=== PATIENT | male | born 1950 | race Caucasian/White ===

== ENCOUNTER → 2017-08-25 | Outpatient (CLI) | payer MEDICARE, OTHER ==
[~2017-08-25] MED LIST: AMBIEN 10MG10 MG PO; AMOXICILLIN 8751 TAB PO; CARDIZEM CD 18180 MG PO; CINNAMON500 MG PO; CORDARONE200 MG/TAB PO; DOXYCYCLINE 10100 MG PO; FORT1000TA PO; GLUCOPHAGE1000 MG PO; GLYNASE PRES-TAB6 MG PO; LANTUS SOLOS100 U/ML SC; LOTENSIN20 MG PO; MUCINEX 60600 MG/TA1 PO; NORVASC 5MG5 MG/TAB PO; OMNICEF 300MG300 MG PO; PRILOSEC 20MG20 MG PO; TYLENOL 325MG325 MG PO; XARELTO10 MG PO; XARELTO15 MG PO; XOPENEX HF0.045 MG/A IH; ZITHROMAX Z PA250 MG PO; ZOCOR 40MG40 MG PO; [UNRECOGNIZED DRUG - OTHER] PO
== END ==
LOC: COL.VAS 09:13
DX: I10 Essential (primary) hypertension (principal)

== ENCOUNTER → 2017-09-02 | Day surgery (SDC) | payer MEDICARE, OTHER ==
[~2017-09-02] VITALS: Ht 180.3 cm; Wt 88.6 kg
== END | disposition home or self-care (01) ==
LOC: COL.CAR 10:01
DX: I10 Essential (primary) hypertension (principal); N28.1 Cyst of kidney, acquired; K44.9 Diaphragmatic hernia without obstruction or gangrene; I70.0 Atherosclerosis of aorta; N40.0 Benign prostatic hyperplasia without lower urinary tract symptoms; Z86.718 Personal history of other venous thrombosis and embolism; I48.91 Unspecified atrial fibrillation; E11.9 Type 2 diabetes mellitus without complications; Z79.4 Long term (current) use of insulin
CPT/HCPCS: Q9967

== ENCOUNTER 2023-05-07 13:05 | Inpatient (IN) | payer MEDICARE, OTHER ==
[~2023-05-07] VITALS: Ht 180.3 cm; Wt 80.3 kg
[~2023-05-07 13:05] MED LIST changes: +ASPIRIN E.C. 8181 MG PO; +B COMPLEX #11 TA1 PO; +CATAPRES0.3 MG PO; +CENTRUM SILVER1 TAB PO; +DIOVAN HCT 25 M1 TA1 PO; -FORT1000TA PO; +OMEGA-3 1000 MG1 CAP PO; +TRESIBA FL100 UNIT/1 SQ
[2023-05-07] MEDS ORDERED: XARELTO10 MG PO (14:07)
[2023-05-07] MEDS ORDERED: ROXICODONE 55 MG/TAB PO (14:09)
[2023-05-07] MEDS ORDERED: OSCAL 500 TAB500 MG PO (14:09)
[2023-05-07] MEDS ORDERED: TYLENOL 325MG325 MG PO (14:09)
[2023-05-07] MEDS ORDERED: FOLIC ACID 11 MG/TA1 PO (14:10)
[2023-05-07] MEDS ORDERED: SENEXON-S 50-81 EACH PO (14:10)
[2023-05-07] MEDS ORDERED: THIAMINE 1100 MG/TAB PO (14:11)
[2023-05-07] MEDS ORDERED: VITAMIN C500 MG PO (14:11)
[2023-05-07] MEDS ORDERED: INSULIN AS100 UNIT/2 SQ (14:16)
--- NOTE | 2023-05-07 16:00 | NUR ---
arrived per WC to room 338, remains up in WC
--- NOTE | 2023-05-07 16:20 | NUR ---
physical assessment completed at this time, at bedside
[2023-05-07] MEDS ORDERED: ASPIRIN E.C. 8181 MG PO (17:40)
[2023-05-07 17:56] VITALS: BP 104/56; PULSE 73; TEMP 98.5
--- NOTE | 2023-05-07 18:41 | NUR ---
shift report given to JENNIFER Desai
[2023-05-07 19:00] VITALS: BP_SYST 104
--- NOTE | 2023-05-07 19:23 | NUR ---
REPORT RECIEVED FROM BASSAM RODRIGUZE. PT RESTING IN BED WITH HIS AND BEDSIDE. PT REPORTS DISCOMFORT TO THE RIGHT HIP AND WAS GIVEN A PAIN PILL JUST BEFORE I ARRIVED. NO OTHER COMPLAINTS OR CONCERNS. CALL LIGHT IN PLACE. ALL NEEDS MET AT THIS TIME.
--- NOTE | 2023-05-07 22:14 | NUR ---
SHIFT ASSESSMENT COMPLETE, SEE DOCUMENTATION. PT RESTING IN BED AND REQUESTS LIGHTS BE OFF SO HE CAN REST. MINIMAL C/O PAIN. PT PLEASANT AND COOPERATIVE WITH CARES FOR THIS NURSE. CALL LIGHT IN PLACE. ALL NEEDS MET AT THIS TIME.
[2023-05-08 06:33] VITALS: BP 156/62; PULSE 80; TEMP 99.1
[2023-05-08 07:00] VITALS: BP_SYST 156
--- NOTE | 2023-05-08 08:15 | NUR ---
PATIENT AWAKE AND ALERT, RESTING IN BED. PATIENT JOHNY ANY NEEDS OR COMPLAINTS AT THIS TIME. PATIENT VOICED FUSTRATION WITH HIS CURRENT THERAPY SCHEDULE. PATIENT SEEN IN ROOM BY ORTHOPEDIC DOCTOR. INCISION SITES WITH STERI STRIPS, CDI. PATIENT STATED HE DOES NOT THINK HE CAN GET OUT OF BED BUT AGREED TO STILL TRY WITH THERAPY.
--- NOTE | 2023-05-08 11:16 | NUR ---
Has lack of transportation kept you from medical appts, meetings, work, or from getting things needed for daily living? NO How often do you feel lonely or isolated from those around you? NEVER Over the past 5 days, how much of the time has pain made it hard for you to sleep? RARELY/NOT AT ALL Over the past 5 days, how often have you limited your participation in therapy due to pain? RARELY/NOT AT ALL Over the past 5 days, how often have you limited your day-to-day activities because of pain? RARELY/NOT AT ALL Have you had 2 or more falls in the past year or any fall with an injury? YES Did you have major surgery during the 100 days prior to admission? YES
--- NOTE | 2023-05-08 13:39 | NUR ---
pt has incentive spirometer from day prior in pt admission still with him
--- NOTE | 2023-05-08 13:54 | NUR ---
PATIENT HAS RETURNED FROM THERAPY. PATIENT RESTING IN BED. ICE BPACK TO R HIP, TYLENOL ADMINISTERED. PATIENT VOICES BEING COMFORTABLE WITH NO FURTHER NEEDS AT THIS TIME. CALL LIGHT WITHIN REACH. AT BEDSIDE.
--- NOTE | 2023-05-08 14:18 | NUR ---
Director Maternal Child and SW student met with Patient and at bedside to conduct Care Managment Assessment. Patient lives in [place], [place] with his and has additional familial supports of his daughters. Patient is established with PCP Dr. Sun and is covered by [facility] and [facility] for insurance. Patient was transferred from [facility] Surgical unit for Post-Acute rehab. Patient reports no stairs at home. Patient states that he does not have grab bars in the bathrooom but has a sink that he can use to assist from sit to stand after toileting. Patient states that he will have room to ambulate with a walker at home. Patient reports that he will have reliable transportation when discharged.
--- NOTE | 2023-05-08 15:53 | NUR ---
INT REMOVED FROM LEFT WRIST, ALL INTACT. PATIENT HANDLED WELL.
[2023-05-08 17:19] VITALS: BP 135/68; PULSE 84; TEMP 98.7
[2023-05-08 19:00] VITALS: BP_SYST 135
--- NOTE | 2023-05-08 22:31 | NUR ---
SHIFT ASSESSMENT COMPLETE. VSS. A&OX4. PATIENT WATCHING TV IN BED. ALL NIGHT MEDS GIVEN PER ORDER. PATIENT HAS NO COMPLIANTS OR REQUEST AT THIS TIME. FALL PRECAUTIONS IN PLACE. CALL LIGHT IN REACH
[2023-05-09 06:32] VITALS: BP 123/57; PULSE 69; TEMP 99.1
[2023-05-09 07:05] VITALS: BP_SYST 123
--- NOTE | 2023-05-09 09:59 | NUR ---
Pt c/o right heel pain at beginning of shift today. Pt noted to have an intact, quarter sized blister to back of right heel. Pt reports his heel has been constantly rubbing the sheets and/or ARCELIA hose. Primo boot placed to right heel for pressure relief. Bandaid placed over blister so pt can wear socks for PT/OT today. Pt currently off the unit for Group Therapy.
--- NOTE | 2023-05-09 10:16 | NUR ---
PT ALERT AND ORIENTED. RESTING IN BED WITH C/O PAIN ON RIGHT HEEL. PT DOES HAVE QUARTER SIZE BLANCHABLE SENSITIVE AREA ON BACK OF RIGHT HEEL. HEEL PROTETOR PLACE ON RIGHT FOOT. WILL CONTINUE TO MONITOR. VITAL SIGNS STABLE. PT MEDICATED PER EMAR. CALL LIGHT WITHIN REACH. BED ALARM ON.
--- NOTE | 2023-05-09 11:51 | NUR ---
Crane Operator Cab rounds: Crane Operator Cab visit attempted; Patient at therapy per the schedule posted on closet door.
--- NOTE | 2023-05-09 14:27 | NUR ---
Min asst provided to help pt stand to FWW to ambulate to the bathroom. CGA provided while ambulating. Pt back to bed after toileting. Family at the bedside. Call light in reach. Bed alarm is on.
[2023-05-09 17:17] VITALS: BP 137/50; PULSE 72; TEMP 98.8
--- NOTE | 2023-05-09 18:17 | NUR ---
PT AND ARE CONCERNED ABOUT THE INSULIN REGIMEN WHILE HERE IN THE HOSPITAL. PT STATES "234 IS NOT CONTROLLED BLOOD SUGAR." HE TAKES 18 UNITS OF A LONG ACTING INSULIN AT HOME AND DOESNT SEE WHY HE CANT DO THAT HERE. PLANS TO BRING IN HIS HOME INSULIN. HOSPITALIST AWARE.
[2023-05-09 19:00] VITALS: BP_SYST 137
--- NOTE | 2023-05-09 19:24 | NUR ---
REPORT RECIEVED FROM MAZIN RODRIGUEZ. PT RESTING IN BED WATCHING K STATE GAME WITH AT BEDSIDE. PT DENIES PAIN OR DISCOMFORT. CALL LIGHT IN PLACE. ALL NEEDS MET AT THIS TIME.
--- NOTE | 2023-05-09 22:18 | NUR ---
SHIFT ASSESSMENT COMPLETE, SEE DOCUMENTATION. PT REFUSED ARCELIA HOSE D/T BLISTER ON THE RIGHT HEEL. BLISTER IS COVERED WITH BANDAID & CDI. PT DID AGREE TO WEAR SCD'S. PT HAS MINIMAL PAIN IN THE RIGHT HIP AND REQUESTED PRN TYLENOL WHICH WAS ADMINISTERED. CALL LIGHT IN PLACE. ALL NEEDS MET AT THIS TIME.
[2023-05-10 06:27] VITALS: BP 142/52; PULSE 71; TEMP 98.1
--- NOTE | 2023-05-10 07:03 | NUR ---
PER ICT SALES ASSISTANT NURSE. PT HAD A GOOD NIGHT, UNEVENTFUL.
[2023-05-10 07:04] VITALS: BP_SYST 142
--- NOTE | 2023-05-10 13:12 | NUR ---
PATEIENT ALERT AND ORIENTED. VITAL SIGNS STABLE. LAYING IN BED THIS MORNING. HERE VISITING EARLY THIS AM. HEAD TO TOE ASSESSMENT COMPLETE. HOSITALIST ROUNDED THIS AM WELL AND RECCOMENDED PT FOLLOW INSULIN REGIMEN PER EMAR. PT AGREES AND WILL FOLOW RECCOMENDED ORDERS TO ADDRESS BLOOD SUGARS GOING FORWARD. PT WAS ABLE TO TOLERATE BEING IN THE RECLINER FOR 2.5 HRS. CALL LIGHT WITHIN REACH CHAIR ALARM ON.
[2023-05-10 17:59] VITALS: BP 128/69; PULSE 70; TEMP 99.2
--- NOTE | 2023-05-10 19:00 | NUR ---
RECEIVED CHANGE OF SHIFT REPORT FROM DAY SHIFT RN.
--- NOTE | 2023-05-10 21:00 | NUR ---
PATIENT STATED HIS EYE DROPS ARE TO ADMINISTERED "TO BOTH EYES".
[2023-05-11 05:12] VITALS: BP 112/60; PULSE 59; TEMP 98.9
--- NOTE | 2023-05-11 05:31 | NUR ---
DENIES NEED FOR PAIN MEDS AT THIS TIME. EXIT ALARM ON WHILE RESTING IN BED, CALL LIGHT IN REACH.
--- NOTE | 2023-05-11 06:45 | NUR ---
CHANGE OF SHIFT REPORT GIVEN TO DAY SHIFT RNMARIAN.
[2023-05-11 07:00] VITALS: BP_SYST 112
[2023-05-11 07:14] LABS: BASO % 0.6 % (0.0-2.0); EOS # 0.4 K/mm3 (0.0-0.7); EOS % 5.8 % (0.0-4.0); GRAN # 4.1 K/mm3 (1.4-6.5); GRAN % 64.5 % (42.2-75.2); LYMPH # 1.2 K/mm3 (1.2-3.4); LYMPH % 18.6 % (20.0-51.0); MEAN CELL VOLUME 97 fl (80.0-100.0); MEAN CORPUSCULAR HGB CONC 35 g/dl (33.0-37.0); MEAN PLATELET VOLUME 9.7 fl (7.4-10.4); MONO # 0.6 K/mm3 (0.1-0.6); PLATELET COUNT 193 K/mm3 (130-400); RED BLOOD COUNT 2.77 M/mm3 (4.20-5.60); REDCELL DISTRIBUTION WIDTH-CV 11.8 % (11.5-14.5)
[2023-05-11 07:19] LABS: HEMATOCRIT 26.8 % (42.0-52.0); HEMOGLOBIN 9.4 g/dl (13.5-18.0); MEAN CORPUSCULAR HEMOGLOBIN 34 pg (27-31)
[2023-05-11 07:35] LABS: CALCIUM 8.8 mg/dL (8.4-10.2); CREATININE, serum 0.84 mg/dL (0.72-1.25)
--- NOTE | 2023-05-11 09:46 | NUR ---
PT UP TO BR VOIDED AND RETURNED TO BED FOR BREAKFAST. PT ATE AND TOOK AM MEDS ORDERED. PT OUT WITH THERAPY THIS AM. DRESSINGS TO RIGHT HIP CDI WITH GAUZE AND TEGADERM OVER INCISIONS. PAIN CONTROLLED WITH PO MEDS.
--- NOTE | 2023-05-11 12:51 | NUR ---
Admission QIM scores were reviewed by the team. Code of 3 chosen for upper body dressing was determined by team discussion to be the most usual performance before interventions for this patient during the assessment period. Code of 2 chosen for lower body dressing was determined by team discussion to be the most usual performance before interventions for this patient during the assessment period. Code of 3 chosen for sit to lying was determined by team discussion to be the most usual performance before interventions for this patient during the assessment period. Code of 2 chosen for lying to sitting side of bed was determined by team discussion to be the most usual performance before interventions for this patient during the assessment period. Code of 3 chosen for sit to stand was determined by team discussion to be the most usual performance for this patient during the discharge assessment period.--Cathleen Mabry, PD
--- NOTE | 2023-05-11 15:56 | NUR ---
Pararescue Craftsman met with patient to check in after weekend. Patient had no immediate questions or concerns. SW discussed a family meeting with patient and he would like to involve his , Ruba and two daughters. Once of his daughters, Denise is an RN here at this facility. AJAY contacted Ruba and scheduled meeting for Thursday at 1030.
[2023-05-11 17:54] VITALS: BP 148/74; PULSE 68; TEMP 99.1
--- NOTE | 2023-05-11 19:02 | NUR ---
RECEIVED CHANGE OF SHIFT REPORT FROM DAY SHIFT RN.
[2023-05-12 05:05] VITALS: BP 139/58; PULSE 64; TEMP 97.5
[2023-05-12 07:25] VITALS: BP_SYST 139
--- NOTE | 2023-05-12 07:27 | NUR ---
pt sitting up in bed eating breakfast. vss. meds given. pt reports right hip pain a 01/24, roxicodone given per emar. right hip incision is cdi. right forearm and right heel dressings are cdi. fall precautions in place. pt denies needs at this time. call light in reach.
[2023-05-12 17:29] VITALS: BP 156/47; PULSE 75; TEMP 98
--- NOTE | 2023-05-12 19:00 | NUR ---
RECEIVED CHANGE OF SHIFT REPORT FROM DAY SHIFT RN. PATIENT RESTING IN BED AT TIME OF REPORT, EXIT ALARM ON, CALL LIGHT IN REACH. DENIES ANY NEEDS AT TIME OF REPORT.
[2023-05-13 05:14] VITALS: BP 110/53; PULSE 72; TEMP 97.5
--- NOTE | 2023-05-13 07:13 | NUR ---
CHANGE OF SHIFT REPORT GIVEN TO DAY SHIFT RNs, KALE.
--- NOTE | 2023-05-13 07:31 | NUR ---
PER MUCK FARMER REPORT FROM RN PT RECIEVED PAIN MEDICINE FOR INTERMITTANT HIP PAIN.PT SLEPT WELL OVERNIGHT PER REPORT.
[2023-05-13 07:34] VITALS: BP_SYST 110
--- NOTE | 2023-05-13 11:29 | NUR ---
PT ALERT AND ORIENTED. VITAL SIGNS STABLE. WHEN I BROUGHT IN PAIN MEDS TO MEDICATE PT REFUSED TYLENOL, STATING "IT DOESNT DO ANYYHING FOR ME". SWALLOWED THE REST OF SCHEDULED MEDS WHOLE WITH WATER (SEE EMAR). TOLERATED FINE. HEAD TO TOE ASSESSMENT COMPLETE. PT ABLE TO WALK TO BATHROOM WITH STBY ASSSIT, AND PULLS HIS PANT UP INDEPENDANTLY. PT NOW HAS SCHEDULED PAIN MEDS TO PRE MEDICATE BEFORE THERAPY.
--- NOTE | 2023-05-13 16:58 | NUR ---
material worker met with IPR team to discuss patient's progress and discharge. Patient is improving and would be ready for discharge 05/19/23 with outpatient PT. material worker met with patient, IPR team and family during family meeting to discuss patient's progress and discharge date. Patient was in agreement with discharge date and plan. Patient and family would like patient to receive outpatient PT through [facility]. Patient has a shower chair already at home. material worker met with patient and provided copy of IPR team notes from earlier that morning. Patient had no concerns or questions at that time. Discharge Plan: Home with Outpatient PT
[2023-05-13 17:42] VITALS: BP 125/69; PULSE 86; TEMP 98.7
[2023-05-13 19:00] VITALS: BP_SYST 133
[2023-05-13 21:19] VITALS: BP 133/77
--- NOTE | 2023-05-14 03:00 | NUR ---
UPON SHIFT ASSESSMENT, KASSANDRA WAS C/O OF 7/10 HIP PAIN. HE DENIED SOA AND DISTAL EXTREMITIES TO fx HAD GOOD PULSES AND SKIN COLOR WNL. PRN PAIN MEDICATION WAS ADMINISTERED ALONG WITH SCHEDULED MEDS AND KASSANDRA ASKED FOR LIGHT TO BE TURNED OFF SO HE COULD SLEEP. HIS VSS ARE WNL, CALL LIGHT WITHIN REACH AND BED ALARM SET. STERISTRIPS ON BOTH INCISION SITES ON RT HIP ARE CLEAN, DRY AND INTACT.
[2023-05-14 05:13] VITALS: BP 110/51; PULSE 62; TEMP 98
--- NOTE | 2023-05-14 05:58 | NUR ---
TOWARDS END OF SHIFT, KIRSTEN POMPA, WAS UP IN BED AND AWAKE. HE DISCUSSED WITH THIS NURSE THE IMPORTANCE OF RECIEVING HIS MIGUEL AT 7:15 PROMPTLY SO THAT HE WOULD HAVE PAIN RELIEF BEFORE HIS OCCUPATIONAL THERAPY. THIS NURSE ADVISE PEÑA THAT THE EMPHASIS FOR PROPT ADMINISTERATION WILL BE PASSED ON TO DAY SHIFT. HE C/O OF NO PAIN CURRENTLY AND HIS VSS ARE WNL. CALL LIGHT WITHIN REACH AND BED ALARM ON.
[2023-05-14 07:00] VITALS: BP_SYST 110
--- NOTE | 2023-05-14 09:19 | NUR ---
PER BANQUET STEWARDESS REPORT PT WAS MEDICATED FOR PAIN, REQUESTING SCHEDULED 0700 MEDS BE GIVEN AT 0715. PER REPORT SLEPT WELL OVERNIGHT.
--- NOTE | 2023-05-14 11:38 | NUR ---
PT ALERT AND ORIENTED. VITAL SIGNS STABLE. MEDICATED PER EMAR. HEAD TO TOE ASSSESSMENT COMPLETE. ABLE TO AMBULATE TO BATHROOM ONE PERSONS ASSIST STANDBY WITH FWW. PT HAS BEEN HAVING PERSSISTANT PAIN WITH MOVEMENT IN AFFETED HIP. HE HAS REQUIRED SCHEDULED PAIN MEDICATION PRE THERAPY SINCE YESTERDAY. NEWLY NOTED SENSITIVE AREA ON LEFT HEEL. PT REQUESTED A BAND AID BE PLACED OVER IT.
--- NOTE | 2023-05-14 15:15 | NUR ---
grey roll worker was contacted by [facility] regarding patient's outpatient PT services. grey roll worker expressed patient would discharge on 05/19/23 from [facility]. grey roll worker scheduled patient's outpatient PT for 05/21/23 from 9:30-10:30 am. grey roll worker notified patient's , Ruba, of appointment date and time. grey roll worker notified patient of outpatient PT appointment. Patient has no questions or concerns at this time. Discharge Plan: Home with Outpatient PT
[2023-05-14 18:00] VITALS: BP 143/82; PULSE 79; TEMP 97.5
[2023-05-14 18:55] VITALS: BP_SYST 143
--- NOTE | 2023-05-14 19:30 | NUR ---
PT RESTING IN BED. A&O X4. NO DISTRESS. PT REPORT LAST BM WAS A WEEK AGO. ENC TO TAKE LAXITIVE. REPORTED FROM LAST SHIFT REFUSED LAXITIVE. PT AGREES. SEE MAR FOR SENOKOT 2 TABS GIVEN. ENC PILLOW TO FLOAT HEELS TO PREVENT BREAKDOWN. PT AGREED. REFUSED SCD'S AT THIS TIME. CALL LIGHT. BED ALARM SET.
[2023-05-15 05:55] VITALS: BP 132/66; PULSE 65; TEMP 98.1
--- NOTE | 2023-05-15 06:00 | NUR ---
ACCUCHECK 74. GAVE PRUNE JUICE WITH MIRALAX. PT DOES NOT WANT TO TAKE ROXICODONE UNTIL 709.
[2023-05-15 07:13] VITALS: BP_SYST 132
--- NOTE | 2023-05-15 14:51 | NUR ---
Cylinder Dyer met with patient to check in prior to the weekend. Patient stated therapy is going well and he is looking forward to getting home next week. Patient denies any questions or concerns at this time.
[2023-05-15 17:03] VITALS: BP 142/78; PULSE 64; TEMP 98.1
--- NOTE | 2023-05-15 21:30 | NUR ---
PT GRUMPY AND DEMANDING WITH QUALITY FACILITATOR. QUALITY FACILITATOR CGA WITH WALKER TO BR. VOIDED. BACK TO BED. DEMANDS HS MEDICATIONS NOW. THIS NURSE ENTERED ROOM. PT GIVEN MEDICATIONS ALONG WITH ROXICODONE. SEE ACCUCHECK/SSI GIVEN. CALL LIGHT IN REACH. BED ALARM SET.
[2023-05-16 05:05] VITALS: BP 121/61; PULSE 63; TEMP 98
[2023-05-16 07:30] VITALS: BP_SYST 121
--- NOTE | 2023-05-16 07:30 | NUR ---
PT AWAKE IN BED UPON ENTERING. PT REPORTING RIGHT HIP PAIN AND GIVEN SCHEDULED PAIN MEDS. PT ALSO REPORTING LEFT HEEL PAIN. LEFT HEEL SKIN INTACT AND NO REDNESS NOTED, BARRIER CREAM AND BANDAID APPLIED. 3 INCISIONS TO RIGHT LEG NOTED, SKIN APPROXIMATED AND COVERED WITH STERISTRIPS. PT DENIES FURTHER NEEDS AT THIS TIME. BED IN LOWEST POSITION, CALL LIGHT IN REACH, BED ALARM ON.
--- NOTE | 2023-05-16 12:16 | NUR ---
PT IN PHYSICAL THERAPY THIS AM AND BACK IN ROOM AND UP TO CHAIR, AT BEDSIDE. PT REPORTS RIGHT HIP PAIN AND GIVEN SCHEDULED PAIN MED. PT DENIES NEEDS AT THIS TIME. CHAIR ALARM ON AND CALL LIGHT IN REACH.
--- NOTE | 2023-05-16 14:23 | NUR ---
PT SHOWERED AND CHANGED INTO PERSONAL CLOTHES. PT AMBULATED TO CHAIR WITH WALKER AND REPORTS IMPROVED RIGHT HIP PAIN. PT REPORTS SOME RIGHT SHOULDER DISCOMFORT AND STATES THAT IT IS RELATED TO PHYSICAL THERAPY. PT DENIES NEEDS AT THIS TIME. CHAIR ALARM ON AND CALL LIGHT IN REACH
--- NOTE | 2023-05-16 16:33 | NUR ---
PT REPORTS INCREASED RIGHT HIP PAIN AND GIVEN PRN PAIN MED PER ORDER. PT DENIES FURHTER NEEDS AT THIS TIME
[2023-05-16 17:37] VITALS: BP 122/56; PULSE 84; TEMP 99
--- NOTE | 2023-05-16 18:44 | NUR ---
REPORT GIVEN TO NIGHT NURSE
[2023-05-16 18:47] VITALS: BP_SYST 122
--- NOTE | 2023-05-16 21:00 | NUR ---
PT RESTING IN BED. A&O. ARGUMENTATIVE AT TIMES. SBA WITH WALKER TO BR. PT REPORTS HAD X 2 BM TODAY. VOIDED THEN BACK TO BED. REQUESTED PAIN MED FOR RT HIP PAIN. SEE MAR.. ACCUCHECK 247. SEE MAR FOR SSI GIVEN. CALL LIGHT IN REACH. BED ALARM SET.
[2023-05-17 06:20] VITALS: BP 103/64; PULSE 84; TEMP 98.7
[2023-05-17 07:03] VITALS: BP_SYST 103
--- NOTE | 2023-05-17 07:20 | NUR ---
resting in bed, medicated with scheduled roxicodone, full assessment completed, see interventions for further info, declines breakfast as he says grandson will bring him something
--- NOTE | 2023-05-17 08:45 | NUR ---
remains resting in bed, grandson was in and brought him breakfast, denies needs at this time
--- NOTE | 2023-05-17 09:45 | NUR ---
shift report received from JENNIFER Meza
--- NOTE | 2023-05-17 11:48 | NUR ---
c/o pain to right leg, medicated with scheduled roxicodne 5mg
--- NOTE | 2023-05-17 13:44 | NUR ---
ambulated out in [place] with PLASTER HELPER and then back to room and in taking a shower
--- NOTE | 2023-05-17 15:30 | NUR ---
appears to be sleeping, in bed with eyes closed, resp quiet and easy
--- NOTE | 2023-05-17 16:44 | NUR ---
c/o pain 01/24 and medicated with roxicodone 5mg
--- NOTE | 2023-05-17 17:43 | NUR ---
sitting up in bed eating supper with at bedside
[2023-05-17 17:45] VITALS: BP 116/87; PULSE 84; TEMP 98.5
[2023-05-17 19:00] VITALS: BP_SYST 116
--- NOTE | 2023-05-17 19:01 | NUR ---
shift report given to JENNIFER Chapin
--- NOTE | 2023-05-17 21:33 | NUR ---
PT IN BED, READY FOR HS MEDS. MEDICATED AT THIS TIME WITH OXYCODONE 5MG PO FOR RT HIP PAIN WITH HS MEDS. RT HIP DRSG'S D/I. ASSISTED TO BATHROOM WITH ONE ASSIST/WALKER/GAIT BELT, VOIDS AND BACK TO BED. BANDAID PLACED TO LT HEEL PER PT REQUEST, SKIN INTACT.
[2023-05-18 07:48] LABS: CALCIUM 9.1 mg/dL (8.4-10.2); CREATININE, serum 0.93 mg/dL (0.72-1.25); POTASSIUM 4.2 mmol/L (3.5-4.5)
--- NOTE | 2023-05-18 08:30 | NUR ---
PT RESTING IN BED WITH PAIN 4/10 IN R HIP. PAIN MEDICATIONS PROVIDED PER EMAR. PT UP TO BATHROOM, GAIT STEADY BUT WEAK WITH WALKER. NO NEEDS AT THIS TIME. WILL CONTINUE TO MONITOR.
[2023-05-18 13:02] LABS: BASO # 0.1 K/mm3 (0.0-0.2); BASO % 0.8 % (0.0-2.0); EOS # 0.3 K/mm3 (0.0-0.7); EOS % 3.6 % (0.0-4.0); GRAN # 4.8 K/mm3 (1.4-6.5); GRAN % 66.8 % (42.2-75.2); HEMATOCRIT 27.5 % (42.0-52.0); HEMOGLOBIN 9.7 g/dl (13.5-18.0); LYMPH # 1.4 K/mm3 (1.2-3.4); LYMPH % 19.2 % (20.0-51.0); MEAN CELL VOLUME 96 fl (80.0-100.0); MEAN CORPUSCULAR HEMOGLOBIN 34 pg (27-31); MEAN CORPUSCULAR HGB CONC 35 g/dl (33.0-37.0); MEAN PLATELET VOLUME 10.2 fl (7.4-10.4); MONO # 0.7 K/mm3 (0.1-0.6); MONO % 9.2 % (1.7-9.3); PLATELET COUNT 293 K/mm3 (130-400); RED BLOOD COUNT 2.87 M/mm3 (4.20-5.60); REDCELL DISTRIBUTION WIDTH-CV 11.9 % (11.5-14.5)
--- NOTE | 2023-05-18 15:11 | NUR ---
iron worker met with patient to discuss discharge planning. Patient is discharging tomorrow and understands he has outpatient PT on at 9:30 Am. No further questions or concerns at this time.
[2023-05-18] MEDS ORDERED: XARELTO10 MG PO (15:26)
[2023-05-18] MEDS ORDERED: OSCAL 500 TAB500 MG PO (15:28)
[2023-05-18] MEDS ORDERED: FOLIC ACID 11 MG/TA1 PO (15:29)
[2023-05-18] MEDS ORDERED: VITAMIN C500 MG PO (15:29)
[2023-05-18] MEDS ORDERED: THIAMINE 1100 MG/TAB PO (15:29)
[2023-05-18] MEDS ORDERED: B COMPLEX #11 TA1 PO (15:29)
[2023-05-18] MEDS ORDERED: ROXICODONE 55 MG/TAB PO (15:30)
--- NOTE | 2023-05-18 15:54 | NUR ---
Group Supervisor Yard met with patient to present and review IM. Patient verbalized understanding and provided signature. SW placed form in chart and provided copy to patient who stated he is ready to go home tomorrow.
--- NOTE | 2023-05-18 16:10 | NUR ---
Has lack of transportation kept you from medical appts, meetings, work, or from getting things needed for daily living? no How often do you feel lonely or isolated from those around you? never Over the past 5 days, how much of the time has pain made it hard for you to sleep? RARELY OR NOT AT ALL Over the past 5 days, how often have you limited your participation in therapy due to pain? RARELY OR NOT AT ALL Over the past 5 days, how often have you limited your day-to-day activities because of pain? RARELY OR NOT AT ALL
[2023-05-18 18:04] VITALS: BP 124/61; PULSE 70; TEMP 98.5
[2023-05-18 19:00] VITALS: BP_SYST 124
--- NOTE | 2023-05-18 21:36 | NUR ---
PT UP TO BATHROOM WITH ONE ASSIST AND WALKER, GAIT STEADY. BACK TO BED. HS MEDS GIVEN INCLUDING OXYCODONE 5MG PO FOR RT LEG PAIN. DENIES HEEL PAIN TONIGHT, STILL HAS BANDAIDS ON BOTH HEELS FOR COMFORT. PT REPORTS FEELING READY FOR DISCHARGE TOMORROW.
[2023-05-19 06:07] VITALS: BP 126/65; PULSE 62; TEMP 98.2
--- NOTE | 2023-05-19 06:10 | NUR ---
PT BS=66, PT EATING A SNACK, REFUSES RECHECK OF BLOOD SUGAR.
--- NOTE | 2023-05-19 07:12 | NUR ---
PER TRACKMOBILE OPERATOR REPORT BG WAS 66 THIS MORNING. REPORTED THAT THE PATIENT REFUSED A RECHECK OF HIS BG, HOWEVER WAS GIVEN A SNACK OF CHEESE AND CRAKERS. WHEN I ASKED HIM TO RECHECK HE REFUSED AGAIN.STATED "I KNOW ITS FINE NOW, ITS NOT NECESSARY TO RECHECK". HIS BREAKFAST TRAY IS IN THE ROOM AND HE IS CURRENTLY EATING.
[2023-05-19 07:16] VITALS: BP_SYST 126
--- NOTE | 2023-05-19 10:07 | NUR ---
PATIENT ALERT AND ORIENTED. UPON ENTERING THE ROOM THE PATIENT IS LAYING IN BED, I ASKED HIM FOR PERMISSION TO RECHECK HIS BLLOD SUGAR AND HE REFUSED. PT IS ASYMPTOMATIC AND WILL BE EATING BREAKFAST SHORTLY. HEAD TO TOE ASSESSMENT COMPLETE. MEDICATED PER EMAR. CALL LIGHT WITHIN REACH. BED ALARM SET.
--- NOTE | 2023-05-19 12:35 | NUR ---
WENT OVER DISCHARGE INSTRUCTIONS WITH PATIENT WELL FOLLOW UP APPOINTMENTS, WHICH MEDS TO START AND WHICH TO STOP. PT VERBALIZES UNDERSTANDING. PT PACKED UP BELONGINGS AND PT ESCORTED OUT WITH STAFF AT 1235 TO PRIVATE VEHICLE.
--- NOTE | 2023-05-19 13:12 | NUR ---
dye house vat worker faxed clinical updates and discharge orders to [facility] for Outpatient PT. Discharge Plan: Home with Outpatient PT
--- NOTE | 2023-05-19 16:31 | NUR ---
Discharge QIM scores were reviewed by the team. Code of 6 chosen for toilet transfers was determined by team discussion to be the most usual performance for this patient during the discharge assessment period. Code of 6 chosen for walking 150 feet was determined by team discussion to be the most usual performance for this patient during the discharge assessment period.--Cathleen Mabry, PD
== END 2023-05-19 12:35 | disposition home or self-care (01) | DRG 560 ==
PROVIDERS: Hospitalist; Internal Medicine; ADMIT Physical Medicine & Rehabilitation Sports Medicine
DX: S72.141D Displaced intertrochanteric fracture of right femur, subsequent encounter for closed fracture with routine healing (principal); E87.20 Acidosis, unspecified; R26.89 Other abnormalities of gait and mobility; E11.9 Type 2 diabetes mellitus without complications; I10 Essential (primary) hypertension; R53.81 Other malaise; R53.1 Weakness; D64.9 Anemia, unspecified; D69.6 Thrombocytopenia, unspecified; H10.9 Unspecified conjunctivitis; W01.0XXD Fall on same level from slipping, tripping and stumbling without subsequent striking against object, subsequent encounter; Z86.718 Personal history of other venous thrombosis and embolism; Z79.84 Long term (current) use of oral hypoglycemic drugs; Z79.899 Other long term (current) drug therapy; Z79.01 Long term (current) use of anticoagulants; Z79.891 Long term (current) use of opiate analgesic; Z79.82 Long term (current) use of aspirin; Z79.4 Long term (current) use of insulin; Z86.711 Personal history of pulmonary embolism; Z74.09 Other reduced mobility
CPT/HCPCS: J1815

== ENCOUNTER 2023-08-13 08:30 | Outpatient (RCR) | payer MEDICARE, OTHER ==
[~2023-08-13 08:30] MED LIST changes: +FOLIC ACID 11 MG/TA1 PO; +INSULIN AS100 UNIT/2 SQ; +OSCAL 500 TAB500 MG PO; +ROXICODONE 55 MG/TAB PO; +SENEXON-S 50-81 EACH PO; +THIAMINE 1100 MG/TAB PO; +VITAMIN C500 MG PO
== END 2023-08-16 | disposition home or self-care (01) ==
LOC: MKS.ESL.PT
DX: S72.091D Other fracture of head and neck of right femur, subsequent encounter for closed fracture with routine healing (principal); X58.XXXD Exposure to other specified factors, subsequent encounter